=== PATIENT | male | born 1995 | race Two or more races ===

== ENCOUNTER 2017-02-13 18:37 | Emergency (ER) | payer SELFPAY ==
[~2017-02-13] VITALS: Ht 180.3 cm; Wt 108.9 kg
[2017-02-13 22:55] VITALS: BP 150/91
== END 2017-02-13 23:09 | disposition home or self-care (01) ==
LOC: ER 18:45
DX: S00.93XA Contusion of unspecified part of head, initial encounter (principal); R42 Dizziness and giddiness; W20.8XXA Other cause of strike by thrown, projected or falling object, initial encounter; Y93.73 Activity, racquet and hand sports; Y99.8 Other external cause status; Y92.89 Other specified places as the place of occurrence of the external cause
CPT/HCPCS: 70450